=== PATIENT | female | born 2000 | race Caucasian/White ===

== ENCOUNTER 2024-12-28 00:07 | Inpatient (IN) | payer BC ==
[~2024-12-28] VITALS: Ht 172.7 cm; Wt 70.3 kg
[2024-12-28] MEDS ORDERED: loperamide 2mg capsule PO PRN (02:55)
[2024-12-28] MEDS ORDERED: magnesium hydroxide 30ml (MOM) UD suspension PO PRN (02:55)
[2024-12-28 04:05] VITALS: RESP 16; O2SAT 100
[2024-12-28] MEDS: nicotine 21mg patch - 24 hr TD SCH (08:27)
[2024-12-28] MEDS ORDERED: DARI50TA PO (08:57)
[2024-12-28] MEDS ORDERED: GABA-530 PO (08:57)
[2024-12-28] MEDS ORDERED: ALPR0.252 PO (08:57)
[2024-12-28] MEDS ORDERED: MELO-100 PO (08:57)
[2024-12-28] MEDS ORDERED: QUET25TA PO (08:57)
[2024-12-28] MEDS ORDERED: URSO250T21 PO (08:57)
[2024-12-28 11:15] LABS: MEAN PLATELET VOLUME 7.1 FL (7.4-10.4); RED CELL DISTRIBUTION WIDTH 24.4 % (11.5-14.5)
[2024-12-28 11:33] LABS: CREATININE 0.58 MG/DL (0.40-0.90); TOTAL CARBON DIOXIDE 24.0 MMOL/L (24-32); eCRCL 151 ML/MIN; eGFR > 90 ML/MIN
[2024-12-28 11:34] VITALS: RESP 14
[2024-12-28 11:35] VITALS: RESP 14
[2024-12-28 11:39] LABS: PLATELET ESTIMATE INCREASED
[2024-12-28 11:40] LABS: LARGE PLATELETS FEW
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
--- NOTE | 2024-12-28 16:08 | HISTORY AND PHYSICAL-Residence ---
History & Physical Providers to Resident Creating Document: STEPHANIE DE LA GARZA RES ~ History of Present Illness Reason for Admit\Complaint: Manic episode History of Present Illness This is a 24-year-old female patient with a history of hereditary spherocytosis and bipolar disorder, admitted in [facility] for a rachael episode. The patient states chronic back and pelvic pain treated with meloxicam daily. She denies fever, urinary symptoms, abdominal pain or shortness for breath. No medical complaints at this time except for the chronic back pain that is not present now. Allergies: Coded Allergies: Penicillins (Verified Allergy, Intermediate, 12/28/24) Rash Home Medications Home Medications Active Reported Ursodiol 250 Mg Tablet 1 Tab PO CC Quviviq (Daridorexant HCl) 50 Mg Tablet 50 Mg PO HS Xanax (Alprazolam) 0.25 Mg Tablet 1 Tab PO Q12H PRN PRN Seroquel (Quetiapine Fumarate) 25 Mg Tablet 1 Tab PO HS Gabapentin 100 Mg Capsule 1 Cap PO TID Meloxicam* (Meloxicam) 7.5 Mg Tablet 1 Tab PO BID Past Medical History Past Medical History Bipolar disorder Past Social History Smoking: Cigarettes Alcohol Use: None Drug Use: Marijuana Lives with: Family Lives In: Home ROS All Other Systems: Reviewed and Negative Exam Vitals: Vital Signs Date Time Temp Pulse Resp B/P (MAP) Pulse Ox O2 Delivery O2 Flow Rate FiO2 12/28/24 11:35 14 Room Air 12/28/24 04:05 100 General: General: Awake and Alert, no acute distress. HEENT: Conjunctiva pink, Sclera clear, Mucus Membranes moist. Neck: Supple without masses and tenderness. Resp: Unlabored. Lungs clear to auscultation bilaterally. Heart: Regular Rate and rhythm, normal S1 and S2 without murmur, rub or gallop. Abdomen: Soft and non tender no organomegaly Extremities: No cyanosis,clubbing or edema. Skin: Warm and Dry. Diagnostic Data Last Recorded Lab Results: 12/28/24 1108 12/28/24 1108 Counseling Services Smoking & Tobacco Cessation: 3-10 Minutes Advance Care Planning Advanced Care plannin - 30 Minutes Additional Plan Bipolar disorder, current in rachael Management as per psychiatrist Chronic back pain Meloxicam discontinued - the patient has been using NSAIDs daily for almost a year Tylenol 650 mg p.r.n. Cyclobenzaprine 10 mg p.r.n. Hereditary spherocytosis Hemoglobin 9.2, Hct 25.8, WBC 16.1, RDW 24.4 There is no bleeding or clinical signs of infection No treatment needed at this time The hospitalist team will follow the patient as per protocol. Date of Service: Dec 28, 2024 Billing Provider: JOSÉ MIGUEL BARROSO MD, LUCAS, RES Dec 28, 2024 16:08
[2024-12-28 19:00] VITALS: RESP 18; O2SAT 100
[2024-12-28] MEDS: NICOTINE POLACRILEX 2 MG LOZENGE BC PRN (19:37)
[2024-12-28 20:00] VITALS: BP 119/64; PULSE 95; RESP 22; TEMP 98.3; O2SAT 100
[2024-12-28] MEDS ORDERED: MELOXICAM 7.5 MG TABLET PO SCH (20:00)
[2024-12-29 07:00] VITALS: BP 145/82; PULSE 113; RESP 16; TEMP 97.2; O2SAT 100
[2024-12-29 09:44] LABS: CHOL/HDL RATIO 2.0 (0.00-4.99); LDL CHOLESTEROL 37 MG/DL (50-100)
[2024-12-29] MEDS: mag hydrox/Alum hydrox/simeth 30ml oral suspension PO PRN (10:03)
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
[2024-12-29 19:00] VITALS: RESP 18; O2SAT 100
[2024-12-29 20:00] VITALS: BP 115/88; PULSE 110; RESP 18; TEMP 98.5; O2SAT 100
[2024-12-29] MEDS: MELOXICAM 7.5 MG TABLET PO ONE (20:26)
[2024-12-30] MEDS: HYDROcodone/acetaminophen 5mg/325mg tablet PO ONE ×2 (05:20→05:34)
[2024-12-30 07:00] VITALS: RESP 18
[2024-12-30 08:00] VITALS: RESP 16
[2024-12-30 08:13] LABS: HBSAG SCREEN Negative (Negative); HEP B CORE AB, IGM Negative (Negative); HEP B CORE AB, TOT Negative (Negative)
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
[2024-12-30 19:00] VITALS: RESP 18; O2SAT 99
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
[2024-12-30] MEDS: MELOXICAM 7.5 MG TABLET PO PRN (21:45)
[2024-12-30] MEDS: QUVIVIQ PO SCH (22:00)
[2024-12-30 22:25] VITALS: BP 88/35; PULSE 84; RESP 18; TEMP 98.1; O2SAT 99
[2024-12-31 06:50] LABS: MEAN PLATELET VOLUME 7.3 FL (7.4-10.4); RED CELL DISTRIBUTION WIDTH 25.3 % (11.5-14.5)
[2024-12-31 07:00] VITALS: RESP 16; O2SAT 99
[2024-12-31 07:13] LABS: CREATININE 0.67 MG/DL (0.40-0.90); TOTAL CARBON DIOXIDE 24.3 MMOL/L (24-32); eCRCL 131 ML/MIN; eGFR > 90 ML/MIN
[2024-12-31 07:50] LABS: PLATELET ESTIMATE INCREASED
[2024-12-31 08:00] VITALS: BP 114/58; PULSE 80; RESP 16; TEMP 98.3; O2SAT 99
--- NOTE | 2024-12-31 10:41 | RADIOLOGY REPORT ---
INDICATION: biliary colic TECHNIQUE: Multiple real-time sonographic images of the abdomen were obtained. COMPARISON: None FINDINGS: The liver is homogenous in echogenicity. The liver measures 18cm. No intrahepatic biliary ductal dilatation is noted. The gallbladder wall measures 0.2 cm and is unremarkable. Gallstones are noted. Gallbladder sludge is present.. The common duct measures 0.3 cm and is unremarkable. No pericholecystic fluid is noted. The right kidney measures 12cm. No hydronephrosis. The pancreas is not well visualized due to obscuration from bowel gas. The visualized portions of the IVC and aorta are grossly unremarkable. IMPRESSION: Gallstones. Gallbladder sludge
[2024-12-31 19:00] VITALS: RESP 18; O2SAT 100
[2024-12-31 20:00] VITALS: BP 112/65; PULSE 86; RESP 18; TEMP 99.3; O2SAT 100
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
[2025-01-01 07:00] VITALS: RESP 16; O2SAT 100
[2025-01-01 08:00] VITALS: BP 112/61; PULSE 86; RESP 16; TEMP 99.3; O2SAT 100
--- NOTE | 2025-01-01 14:48 | PROGRESS NOTE ---
Progress Note Dictate Providers to CC ~ Central Line/PICC still needed: N\A Antibiotic Ordered?: No Objective Vitals Vital Signs Date Time Temp Pulse Resp B/P (MAP) Pulse Ox O2 Delivery O2 Flow Rate FiO2 01/01/25 08:00 99.3 86 16 112/61 (78) 100 Room Air Lab Results: 12/31/24 0622 12/31/24 0622 Problem\Assessment\Plan Problems/Diagnosis: (1) Bipolar 1 disorder, manic, moderate Psychiatrist's Progress Note Date of Service: Jan 01, 2025 Notes Gloria Gilbert is a 24yo female who was admitted on a 5150 GD, per chart notes, In [facility], she was making statements that she believes she is being followed and can read peoples minds. The patient has hx of Hereditary Spherocytosis with subsequent anemia. She is currently not restricting her eating, she was medically cleared at [facility] . Derrick, per her nurse, patient was making delusional comments about having millions of dollars stole from her. She long curly hair light colored. Wearing her own clothes. Want to get more piercing. Have a feeling the Haldol is having bad ASE. This morning started having a panic attack for 2 hours. being outside. shoulders hurting. Rapid speech, pressured, interrupting. Feels lithium stabilizing her out. A bit of depression. should be getting seroquel.. but took her off of it. Been 'withdrawing from it'. Wants 25mg dose. 'I'm bipolar.' Brain moves really fast. Having a lot of panic attacks... has had Xanax for over a year half of a 0.25mg. Fanning herself with her hands. Feeling lied to. Sleep now. QviviQ. Got accepted to a residential treatment program in [place]. Says she has OCD, Bipolar, PTSD. Denies SI. Denies AH/VH. Some paranoid thinking. 'common with me.' 'thinking the haldol is making me more agitated and anxious.' Mental Status Eye contact: Fair/intense; Behavior: Cooperative. Speech: rapid, pressured, hyperverbal Mood: Very anxious. Affect: Labile. Thought process: Mild disorganization, Circumstantial/Tangential at times Paranoid Delusions. Thought Content: immediate needs/medications. Cognition: A&O X4; Insight: Very Poor; Judgment: Very Poor; SI Denies/HI Denies, AH Denies/VH Denies Results Of any Diagn. Testing Labs show anemia, Kidney fx fine Treatment ADD back Seroquel 25mg one po hs. ADD Xanax 0.25mg one a day PRN Anxiety/panic Decreased Haldol 2.5mg hs [place] 150mg hs. VOL HOLD-- GD-- The patient is unable to formulate a viable plan for food, clothing and care home. We are still titrating medications to an effective dose while maintaining a therapeutic environment to prevent decompensation and readmission. Monitoring by Staff, Milieu, Group, and Individual counseling as needed -- According to the [facility] Suicide Assessment the above named patient is on Q15 MINUTE CHECKS. REVIEW OF Clinical notes [X ] RN notes [X] PCT documentation [X] SW notes Labs [ X] Medications [X] Care trends/care activity [X] Vitals [X] DISCUSSION WITH chaser apprentice [X] CODING VISIT-PSYCHIATRY Date of Service: Jan 01, 2025 Billing Provider: KARLA CORONADO Psych Common Visit Codes: [id number] INP/OBS CARE(High) KARLA CORONADO Jan 01, 2025 14:48
--- NOTE | 2025-01-01 17:42 | PROGRESS NOTE- Residence ---
Progress Note - Resident Providers to CC Resident Creating Document: REMINGTON WATERS RES CC: TITA FRIAS MD ~ Antibiotic Timeout Antibiotic Ordered?: No MRSA Education MRSA Education Provided to pt: No Subjective Patient is seen this evening in his [facility]. She stated she did yoga yesterday and since then she was having right hip/back pain. No other complaints. Objective Vital Signs Date Time Temp Pulse Resp B/P (MAP) Pulse Ox O2 Delivery O2 Flow Rate FiO2 01/01/25 08:00 99.3 86 16 112/61 (78) 100 Room Air Result Diagram: 12/31/2462112/31/24621 General: Adult female, AAO x4, not in apparent distress Head: Normocephalic with an atraumatic Eyes: Pupils- 3mm, reacting to light, conjunctiva- icteric Nose and throat: No polyps, septum- normal, no mucosal ulcers Neck: Supple, no lymphadenopathy, no carotid bruit Respiratory: No use of accessory muscles of respiration, Bilateral normal breath sounds heard. No wheeze, rhochi or creps Cardiac: S1-S2 heard, rythm regular, no gallop/murmur Abdomen: non distended, tenderness in the right upper quadrant on deep palpation no organomegaly, bowel sounds- heard Extremities: no clubbing, no pedal edema, no deformities, peripheral pulses- 2+ Examination of the right lower extremity- there is a healing gastric present over plantar aspect of the right foot, wound margins are approximated, there is no redness no calor, no tumor, no tenderness Left knee few bruises present Skin: warm and dry, no rash, no purpura Neuro: No focal deficit, gross cranial nerve exam- normal Assessment Assessment 24-year-old female with hereditary spherocytosis is admitted to the [facility] for bipolar disorder Plan Plan Bipolar disorder -management per Psychiatry Hereditary Spherocytosis -h/h- 8.09/30 -follow up on iron panel, peripheral smear -discussed with the patient regarding starting iron tablets however patient stated she had constipation before and would not like to take iron tablets at this time. rediscuss with patient again Biliary colic -patient had history of biliary sludge -ultrasound abdomen showed biliary sludge -follow up on hida scan -fat free diet Hyperbilirubinemia T. bilirubin 3.5 -AST/ALT/ALP normal -follow up on CMP tomorrow Leukocytosis -WBCs down to 13 from 16 -suspect leukocytosis likely secondary to stress/hemoconcentration -follow up on procalcitonin Reactive thrombocytosis -suspect likely secondary to HS/RANDOLPH Chronic back pain -patient is requesting to resume her meloxicam -continut meloxicam 7.5 mg bid prn for pain Labs and vitals reviewed Follow up on HIDA scan, CBC, CMP, procalcitonin, iron panel tomorrow Date of Service: Jan 01, 2025 Billing Provider: TITA FRIAS MD, HARIVARSHA, RES Jan 01, 2025 17:42
[2025-01-01] MEDS ORDERED: ALPRAZolam 0.25mg tablet PO PRN (18:35)
[2025-01-01 19:00] VITALS: RESP 18; O2SAT 100
[2025-01-01 20:00] VITALS: BP 138/70; PULSE 73; RESP 18; TEMP 97.8; O2SAT 100
[2025-01-02 07:41] VITALS: RESP 16; O2SAT 100
[2025-01-02 08:00] VITALS: BP 129/69; PULSE 75; RESP 18; TEMP 97.7; O2SAT 100
[2025-01-02 08:02] LABS: MEAN PLATELET VOLUME 7.4 FL (7.4-10.4); RED CELL DISTRIBUTION WIDTH 26.2 % (11.5-14.5)
[2025-01-02 08:43] LABS: eGFR > 90 ML/MIN
[2025-01-02 08:44] LABS: PLATELET ESTIMATE INCREASED
[2025-01-02 08:46] LABS: CREATININE 0.69 MG/DL (0.40-0.90); TOTAL CARBON DIOXIDE 21.8 MMOL/L (24-32); eCRCL 127 ML/MIN
[2025-01-02 08:54] LABS: HCG SERUM QL NEGATIVE
[2025-01-02 09:06] LABS: % IRON SATURATION 27 % (11-46)
[2025-01-02] MEDS: sincalide inj 1.4 MCG in normal saline 100ml IV soln 100 ML IV ONE (10:20)
--- NOTE | 2025-01-02 12:23 | PROGRESS NOTE ---
Progress Note Dictate Providers to CC ~ Central Line/PICC still needed: N\A Antibiotic Ordered?: No Objective Vitals Vital Signs Date Time Temp Pulse Resp B/P (MAP) Pulse Ox O2 Delivery O2 Flow Rate FiO2 01/02/25 08:00 97.7 75 18 129/69 (89) 100 Room Air Lab Results: 01/02/25 0735 01/02/25 0735 Problem\Assessment\Plan Problems/Diagnosis: (1) Bipolar 1 disorder, manic, moderate Psychiatrist's Progress Note Date of Service: Jan 02, 2025 Notes Gloria Gilbert is a 24yo female who was admitted on a 5150 GD, per chart notes, In [facility], she was making statements that she believes she is being followed and can read peoples minds. The patient has hx of Hereditary Spherocytosis with subsequent anemia. She is currently not restricting her eating, she was medically cleared at [facility] . Derrick, per her nurse, patient was making delusional comments about having millions of dollars stole from her. She long curly hair light colored. Wearing green scrubs. Feel a lot less manic. This afternoon had a panic attack after the test. Had the xanax and it did well. pretty manic today. rapid and pressured. She is really excited about residential treatment facility. She is clean and had a shower. Mood is better. 'feel better' with the seroquel. 'I am feeling extremely depressed.' No SI. Intense PMS and emotional. Has had anorexia. Eating ate all dinner and extra smoothie. A long time to fall asleep. Had a long nap yesterday. Mental Status Eye contact: Fair/intense; Behavior: Cooperative. Speech: rapid, pressured, hyperverbal Mood: Very anxious. Affect: Less Labile. Thought process: No disorganization, Circumstantial/Tangential at times Paranoid Delusions. Thought Content: immediate needs/medications. Cognition: A&O X4; Insight: Very Poor; Judgment: Very Poor; SI Denies/HI Denies, AH Denies/VH Denies Results Of any Diagn. Testing Labs show anemia, Kidney fx fine Treatment INCREASE Seroquel 50mg one po hs. Xanax 0.25mg one a day PRN Anxiety/panic d/c Haldol 2.5mg hs INCREASE [place] 300mg BID VOL HOLD-- GD-- The patient is unable to formulate a viable plan for food, clothing and snf. We are still titrating medications to an effective dose while maintaining a therapeutic environment to prevent decompensation and readmission. Monitoring by Staff, Milieu, Group, and Individual counseling as needed -- According to the [place] Suicide Assessment the above named patient is on Q15 MINUTE CHECKS. REVIEW OF Clinical notes [X ] RN notes [X] PCT documentation [X] SW notes Labs [ X] Medications [X] Care trends/care activity [X] Vitals [X] DISCUSSION WITH pearl maker [X] CODING VISIT-PSYCHIATRY Date of Service: Jan 02, 2025 Billing Provider: KARLA CORONADO Psych Common Visit Codes: [id number] INP/OBS CARE(High) KARLA CORONADO Jan 02, 2025 12:23
[2025-01-02] MEDS: ALPRAZolam 0.25mg tablet PO ONE (12:41)
--- NOTE | 2025-01-02 14:07 | RADIOLOGY REPORT ---
NM NM HIDA SCAN HISTORY: This is a gall sludge COMPARISON: 12/31/24 PROCEDURE: Following IV injection of 5.4 mCi Tc99m Choletec, serial images were obtained of the abdo men for 40 minutes. 1.4 mcg of kinevac was injected. FINDINGS: There is normal visualization of the liver and bile ducts with activity reaching the small bowel within 60 minutes. There is activity in the gallbladder. Following injection of Kinevac, gall bladder ejection fraction is 13 % after 26 minutes. IMPRESSION: Low gallbladder ejection fraction can be seen with impaired gallbladder emptying. The gallbladder is visualized which rules out acute cholecystitis.
[2025-01-02 19:00] VITALS: RESP 18; O2SAT 98
[2025-01-02 20:00] VITALS: BP 145/57; PULSE 86; RESP 18; TEMP 98.3; O2SAT 98
--- NOTE | 2025-01-02 20:18 | PROGRESS NOTE- Residence ---
Progress Note - Resident Providers to CC Resident Creating Document: AMY SMITH RES ~ Antibiotic Timeout Antibiotic Ordered?: No Subjective Patient is seen this evening in his [facility]. No other complaints today Objective Vital Signs Date Time Temp Pulse Resp B/P (MAP) Pulse Ox O2 Delivery O2 Flow Rate FiO2 01/02/25 19:00 18 98 Room Air 01/02/25 08:00 97.7 75 129/69 (89) Result Diagram: 01/02/25 0735 01/02/25 0735 General: Adult female, AAO x4, not in apparent distress Head: Normocephalic with an atraumatic Eyes: Pupils- 3mm, reacting to light, conjunctiva- icteric Nose and throat: No polyps, septum- normal, no mucosal ulcers Neck: Supple, no lymphadenopathy, no carotid bruit Respiratory: No use of accessory muscles of respiration, Bilateral normal breath sounds heard. No wheeze, rhochi or creps Cardiac: S1-S2 heard, rythm regular, no gallop/murmur Abdomen: non distended, tenderness in the right upper quadrant on deep palpation no organomegaly, bowel sounds- heard Extremities: no clubbing, no pedal edema, no deformities, peripheral pulses- 2+ Examination of the right lower extremity- there is a healing gastric present over plantar aspect of the right foot, wound margins are approximated, there is no redness no calor, no tumor, no tenderness Left knee few bruises present Skin: warm and dry, no rash, no purpura Neuro: No focal deficit, gross cranial nerve exam- normal Advance Care Planning Advanced Care plannin - 30 Minutes Assessment Assessment 24-year-old female with hereditary spherocytosis is admitted to the [facility] for bipolar disorder Plan Plan Bipolar disorder -management per Psychiatry Hereditary Spherocytosis Hemoglobin 9.2 Iron panel normal Patient denied iron tablets Biliary colic Fat free food, Dr. Bethea consulted, recommended dietary modifications and active cholecystectomy only if it becomes intractable biliary colic Outpatient follow up Patient had history of biliary sludge -ultrasound abdomen showed biliary sludge HIDA scan showed: Low gallbladder ejection fraction can be seen with impaired gallbladder emptying. -fat free diet Hyperbilirubinemia T. bilirubin 3.5 -AST/ALT/ALP normal CMP normal Leukocytosis WBC 11.6 trending down -suspect leukocytosis likely secondary to stress/hemoconcentration Procalcitonin normal Reactive thrombocytosis -suspect likely secondary to HS/RANDOLPH Chronic back pain -continut meloxicam 7.5 mg bid prn for pain Date of Service: Jan 02, 2025 Billing Provider: TITA FRIAS MD, GAURAV, RES Jan 02, 2025 20:18
[2025-01-03 07:37] VITALS: RESP 16; O2SAT 100
[2025-01-03 08:00] VITALS: BP 135/84; PULSE 83; RESP 16; TEMP 98.1; O2SAT 98
[2025-01-03 09:45] LABS: MEAN PLATELET VOLUME 7.1 FL (7.4-10.4); RED CELL DISTRIBUTION WIDTH 25.3 % (11.5-14.5)
[2025-01-03 10:02] LABS: PLATELET ESTIMATE INCREASED
[2025-01-03 10:03] LABS: CREATININE 0.64 MG/DL (0.40-0.90); TOTAL CARBON DIOXIDE 25.3 MMOL/L (24-32); eCRCL 137 ML/MIN; eGFR > 90 ML/MIN
--- NOTE | 2025-01-03 18:41 | PROGRESS NOTE- Residence ---
Progress Note - Resident Providers to CC Resident Creating Document: SEPIDEH BRADY ONIEL, RES ~ Antibiotic Timeout Antibiotic Ordered?: No Subjective Patient is seen this evening in his H. RUQ pain has significantly gotten down. No new complaints. She is manic and talkative. Objective Vital Signs Date Time Temp Pulse Resp B/P (MAP) Pulse Ox O2 Delivery O2 Flow Rate FiO2 01/03/25 08:00 98.1 83 16 135/84 (101) 98 Room Air Result Diagram: 01/03/2592601/03/25926 General: Adult female, AAO x4, not in apparent distress Head: Normocephalic with an atraumatic Eyes: Pupils- 3mm, reacting to light, conjunctiva- icteric Nose and throat: No polyps, septum- normal, no mucosal ulcers Neck: Supple, no lymphadenopathy, no carotid bruit Respiratory: No use of accessory muscles of respiration, Bilateral normal breath sounds heard. No wheeze, rhochi or creps Cardiac: S1-S2 heard, rythm regular, no gallop/murmur Abdomen: non distended, mild tenderness in RUQ, no organomegaly, bowel sounds- heard Extremities: no clubbing, no pedal edema, no deformities, peripheral pulses- 2+ Examination of the right lower extremity- there is a healing cut present over plantar aspect of the right foot, wound margins are approximated, there is no redness no calor, no tumor, no tenderness Left knee few bruises present Skin: warm and dry, no rash, no purpura Neuro: No focal deficit, gross cranial nerve exam- normal Assessment Assessment A 24-year-old female with hereditary spherocytosis is admitted to the [facility] for bipolar disorder. Plan Plan Bipolar disorder -management per Psychiatry Hereditary Spherocytosis Hemoglobin stable Iron panel normal Patient denied iron tablets Biliary colic Cholelithiasis Acute cholecystitis, ruled out Patient counseled on having outpatient follow up for her cholelithiasis. She agreed with recommendations. Continue diet modification and ursodiol. -ultrasound abdomen showed biliary sludge HIDA scan showed: Low gallbladder ejection fraction can be seen with impaired gallbladder emptying. -fat free diet Hyperbilirubinemia T. bilirubin trending down. -AST/ALT/ALP normal CMP normal Leukocytosis Trending down -suspect leukocytosis likely secondary to stress/hemoconcentration Procalcitonin normal Reactive thrombocytosis -suspect likely secondary to HS/RANDOLPH Chronic back pain -continut meloxicam 7.5 mg bid prn for pain Disposition: Hospitalist service we will continue to follow the patient during the course of her hospital stay. Sepideh Brady MD Internal Medicine Resident, PGY-2 Date of Service: Jan 03, 2025 Billing Provider: TITA FRIAS MD,SEPIDEH ENGLE, RES Jan 03, 2025 18:40
[2025-01-03 19:00] VITALS: RESP 16; O2SAT 99
[2025-01-03 19:31] VITALS: BP 122/71; PULSE 87; RESP 16; TEMP 98.5; O2SAT 99
--- NOTE | 2025-01-03 20:35 | PROGRESS NOTE ---
Progress Note Dictate Providers to CC ~ Antibiotic Ordered?: No Objective Vitals Vital Signs Date Time Temp Pulse Resp B/P (MAP) Pulse Ox O2 Delivery O2 Flow Rate FiO2 01/03/25 19:31 98.5 87 16 122/71 (88) 99 Room Air Lab Results: 01/03/25 0927 01/03/25 0927 Problem\Assessment\Plan Problems/Diagnosis: (1) Bipolar 1 disorder, manic, moderate Psychiatrist's Progress Note Date of Service: Jan 03, 2025 Notes History of Present Illness Pt admitted on a 5150 GD, per chart notes, [facility], she was making statements that she believes she is being followed and can read peoples minds. The patient has hx of Hereditary Spherocytosis with subsequent anemia. w currently not restricting her eating, she was medically cleared at [facility] . Derrick, per her nurse, patient was making delusional comments about having millions of dollars stole from her. Patient presented as manic, speech was rapid, disorganized, states she was not sleeping much, her mother stopped cooking so she decided to self admit to get help. Patient endorse dx of Bipolar at age 17, has been on Seroquel and Xanax since year 2021. This is her third hospitalization, hx of suicidal ideation but no attempts. Cut on side of left hip in HS, denies hx or current AVH. father dx with OCD, uncle by suicide Assessment: Patient assessed in the conference room, presents calmer today, states she is sleeping well, mood have leveled out, Speech is just a little rapid but was able to make herself take big breaths and resume talking in a calm voice. [place] dose was increased yesterday, will continue on same dose, pt seems to be responding well to it. Patient is on vol, she is denying all symptoms. Her family would like to pick her up tomorrow and take her to a residential facility. No behavioral or safety concerns reported by staff. Plan is to discharge to family tomorrow Mental Status Exam Appearance: wearing home clothings Speech: slightly rapid Eye Contact: normal Motor Activity: calm Affect: congruent Mood: calmer Orientation Impairment: Place, Object, Person Memory Impairment: None Attention: Normal Hallucinations: None Other: None Suicidality: None Homicidality: None Behavior: Cooperative Insight: fair Judgment: Fair 01/03/25 [place] level= 0.5 dose was increased yesterday Medication Management 1. [place] 300 mg bid 2. QUVIVIQ 50 mg HS 3. Continue all prn meds as indicated Legal: vol Total time spend 60 minutes including but not limited to pt assessment, chart/labs/imagining/meds review, discussion with pt RN/SW/CN, ordering meds/labs and documentation CODING VISIT-PSYCHIATRY Date of Service: Jan 03, 2025 Billing Provider: MG WILSON DNP Psych Common Visit Codes: [id number] INP/OBS CARE(Mod) MG WILSON DNP Jan 03, 2025 20:35
[2025-01-03] MEDS ORDERED: LIT300C PO (20:42)
[2025-01-04 07:00] VITALS: RESP 16; O2SAT 98
[2025-01-04 07:17] VITALS: RESP 16; O2SAT 98
[2025-01-04 07:20] VITALS: RESP 16; O2SAT 98
[2025-01-04 08:00] VITALS: BP 134/97; PULSE 60; RESP 18; TEMP 97.8; O2SAT 99
--- NOTE | 2025-01-04 20:48 | DISCHARGE SUMMARY ---
Discharge Summary Providers to CC ~ Discharge Summary Admission Diagnosis: Bipolar 1 disorder, manic moderate Hospital Course DATE OF ADMISSION: 12/28/24 DATE OF DISCHARGE: Discharge Diagnosis\Comment: Patient was admitted for acute manic episode with grandiosity and delusional thinking. Patient was exhibiting elevated mood, increased energy, grandiose ideas, and delusions. She was treated with a mood stabilizer regimen, including lithium, with close monitoring of therapeutic levels and side effects. Over the course of her admission, Joseluis manic symptoms improved significantly. She participated in group therapy, demonstrated increased insight, and engaged in discharge planning. Mental Status Examination at Discharge: Gloria is alert and oriented to person, place, time, and situation. Her mood is euthymic and affect is appropriate. Speech is normal in rate and tone. Thought process is linear and goal-directed. She denies any current delusions, hallucinations, or suicidal/homicidal ideation. Insight and judgment are fair. No psychomotor agitation or retardation observed. Operations\Procedures: none Consultants: Hospitalists Team managed medical conditions Complications: none Condition on DC: Stable 2 or more antipsychotic used: Yes 2/more antipsychotic addressed: Yes Does Patient smoke: Yes Smoking education given.: Yes New Medications: [place] Carbonate (LITHIUM CARBONATE tablet) 300 Mg Tablet.sa 300 MG PO BID for 15 Days, #30 TAB.SR Continued Medications: Alprazolam (Xanax) 0.25 Mg Tablet 1 TAB PO Q12H PRN PRN for anxiety, TAB 0 Refills Daridorexant HCl (Quviviq) 50 Mg Tablet 50 MG PO HS Gabapentin (Gabapentin) 100 Mg Capsule 1 CAP PO TID, CAP 0 Refills Meloxicam* (Meloxicam*) 7.5 Mg Tablet 1 TAB PO BID, TAB 0 Refills Quetiapine Fumarate (Seroquel) 25 Mg Tablet 1 TAB PO HS, TAB Ursodiol (Ursodiol) 250 Mg Tablet 1 TAB PO CC, TAB 0 Refills Discharge Summary: Gloria is being discharged in stable condition to [facility] for continued psychiatric care and medication management. She was provided with a 14-day supply of lithium and instructions for ongoing monitoring of mood symptoms and laboratory parameters. The residential facility will continue structured support, therapy, and medication oversight to promote further stabilization and recovery. *Problems/Diagnosis: (1) Bipolar 1 disorder, manic, moderate Total Time Spent on D/C: > 30 Minutes Counseling Services Smoking & Tobacco Cessation: > 10 Minutes CODING VISIT-PSYCHIATRY Date of Service: Jan 04, 2025 Billing Provider: MG WILSON DNP Psych Common Visit Codes: [id number] INP/OBS CARE(Mod), 27635-WID/OBS DISCH DAY >30min Psych Secondary Visit Codes: [id number] CHNG SMOKING >10MIN MG WILSON DNP Jan 04, 2025 20:48
== END 2025-01-04 09:09 | disposition home or self-care (01) | DRG 885 ==
LOC: ADULT MH 02:31
PROVIDERS: ADMIT Psychiatry & Neurology Psychiatry; ATTEND Psychiatry & Neurology Psychiatry
PROC: GZHZZZZ Group Psychotherapy (ICD-10-PCS; principal; 2025-01-01)
PROC: GZ51ZZZ Individual Psychotherapy, Behavioral (ICD-10-PCS; 2025-01-01)
PROC: CF141ZZ Planar Nuclear Medicine Imaging of Gallbladder using Technetium 99m (Tc-99m) (ICD-10-PCS; 2025-01-02)
DX: F31.12 Bipolar disorder, current episode manic without psychotic features, moderate (principal); D58.0 Hereditary spherocytosis; G89.29 Other chronic pain; M54.89 Other dorsalgia; Z79.899 Other long term (current) drug therapy; Z87.891 Personal history of nicotine dependence; Z88.0 Allergy status to penicillin
CPT/HCPCS: 36415; 76700; 78227; 80053; 80061; 80178; 82728; 83036; 83540; 83550; 84145; 84466; 84703; 85008; 85025; 86704; 86705; 87081; 87340; 99285; A9537; J2805; Q0161; Q0163; Q0177